=== PATIENT | female | born 1975 | race Caucasian/White ===

== ENCOUNTER 2017-01-25 07:58 | Observation (INO) | payer BC ==
[2017-01-25] MEDS ORDERED: Clindamycin 900 MG IVPREMIX(* 900 MG/50 ML SDV IV ONE (09:00)
[2017-01-25] MEDS ORDERED: HYDROmorphone PCA* 20 MG/20 ML PCA.SYRING ONE (09:35)
[2017-01-25] MEDS ORDERED: LORazepam TAB(*) 1 MG ONE (09:59)
[2017-01-25] MEDS ORDERED: Scopolamine 1.5 mg* PATCH ONE (09:59)
[2017-01-25] MEDS ORDERED: Ondansetron INJ* 2 MG/ML VIAL ONE (09:59)
[2017-01-25] MEDS ORDERED: Ibuprofen TAB* 800 MG PO ONE (10:00)
[2017-01-25] MEDS ORDERED: oxyCODONE SR TAB(*) 10 MG TAB.SR PO ONE (11:00)
[2017-01-25] MEDS ORDERED: Lidocaine 1% INJ* 10 MG/ML 30 ML SDV ONE (12:33)
[2017-01-25] MEDS ORDERED: Naloxone* 0.4 MG/ML 1 ML VIAL ONE (12:33)
[2017-01-25] MEDS ORDERED: Flumazenil* 0.1 MG/ML 5 ML MDV ONE (12:33)
[2017-01-25] MEDS ORDERED: Ketorolac INJ* 30 MG/ML 1 ML VIAL ONE ×2 (12:33→14:02)
[2017-01-25] MEDS ORDERED: Iohexol 350 (CONTRAST) 200 ML MDV IV ONE ×2 (12:33→14:06)
[2017-01-25] MEDS ORDERED: Midazolam* 1 MG/ML 10 ML VIAL (10 MG) ONE (12:33)
[2017-01-25] MEDS ORDERED: fentaNYL* 50 MCG/ML 5 ML VIAL (250 MCG VIAL) ONE ×2 (12:33→14:11)
[2017-01-25] MEDS ORDERED: Heparin 2 UNITS/ML IVPREMIX* 1,000 ML IV ONE ×2 (12:33→12:37)
[2017-01-25] MEDS ORDERED: nitroGLYCERIN DRIP* 25,000 MCG/250 ML BTL ONE (13:03)
[2017-01-25] MEDS ORDERED: HYDROmorphone INJ* 1 MG/ML CARPUJECT SYRINGE ONE (14:30)
[2017-01-25] MEDS: NS 0.9% 1000 ML* 1,000 ML IV SCH ×2 (15:21→21:03)
[2017-01-25] MEDS: Ketorolac INJ* 15 MG/ML 1 ML VIAL IV PUSH SCH ×2 (15:41→19:54)
[2017-01-25] MEDS ORDERED: HYDROmorphone PCA* 20 MG/20 ML PCA.SYRING PCA SCH (16:00)
[2017-01-25] MEDS ORDERED: Ketorolac INJ* 15 MG/ML 1 ML VIAL IV PUSH ONE (16:00)
--- NOTE | 2017-01-25 17:39 | PN ---
Progress Note - Progress Note Date of Service: 01/25/17 SOAP: Subjective: Pain currently controlled with Dilaudid REPLANTER. Denies nausea. Patient taking small sips of clears. Objective: Selected Entries 01/25/17 01/25/17 17:17 17:19 Temperature 97.2 F Temperature Oral Source Pulse Rate 66 Respiratory 16 Rate Blood Pressure 104/52 (mmHg) Blood Pressure 65 Mean O2 Sat by Pulse 96 Oximetry Sleepy, but arousable to voice. NAD, AAO x 3 Abdomen & Pelvis are soft Suprapubic area and uterine fundus tender to palpation Right CF arteriotomy site is soft, non-tender, non-ecchymotic Dressing is CDI 2+ pulses in RLE Right leg and foot NM grossly intact Assessment: 41 YOF status post Uterine Fibroid Embolization with expected post embolization pain & nausea currently well controlled. Plan: 1. Standard Interventional Radiology post UFE pain and nausea control with standard monitoring. 2. Transition to PO pharmacotherapy tomorrow morning. 3. Add Ativan 0.5 mg PO Q 6 hours PRN for pain/nausea/anxiety. 4. Bedrest ends and Arana removed at 2000 hours.
[2017-01-25] MEDS ORDERED: LORazepam TAB(*) 0.5 MG PO PRN (17:41)
--- NOTE | 2017-01-25 19:02 | RAD ---
CPT II Codes: 6045F Procedure(s) performed: * Pelvic arteriography including the bilateral internal iliac arteries. * Catheter arteriography of the bilateral uterine arteries. * Catheter embolization of the bilateral uterine arteries. Date of service: January 25, 2017 Indication for procedure: Severe menstrual pain in the presence of multiple uterine fibroids. Comparison: MRI of pelvis dated January 16, 2017 and ultrasound of the pelvis dated October 11, 2016. Contrast: 75 mL Omnipaque 300 Fluoroscopy Time: 24 minutes Vessels Accessed: Percutaneous access was obtained with ultrasound guidance in the right common femoral artery in the retrograde. Catheter arteriography, with the catheter tip located within the lumen of the following arteries, was performed at the Bilateral Internal Iliac Arteries and Bilateral Uterine Arteries. Anesthesia: Conscious sedation with IV Fentanyl and Versed as well as local 1% lidocaine injected locally at the arteriotomy site. Conscious sedation time: Timeout: 1250 hours Case end: 1426 hours Total conscious sedation time: 1 hour and 36 minutes Additional medications: * 300 mcg IA nitroglycerin injected intermittently throughout the course of the procedure to alleviate arterial spasm. * Intra-arterial Toradol, 15 mg injected into each uterine artery, for a total of 30 mg intra-arterial. * Intravenous Toradol, 20 mg. * Transdermal scopolamine patch 1.5 mg applied to the mastoid process prior to the procedure beginning. * A total of 4 mg Zofran was administered intravenously. * Additional preoperative medications included Ativan 1 mg p.o., ibuprofen 800 mg p.o. and clindamycin 900 mg IV. PROCEDURE NOTE AND INTRAPROCEDURAL IMAGING FINDINGS: Immediately prior to the procedure the patient signed consent after thoroughly discussing all risks and benefits. The patient was positioned on the fluoroscopy table in the supine position and the bilateral groins were shaved, prepped and draped in standard sterile fashion. Using fluoroscopic imaging the location of the right common femoral head was marked externally with a skin marker on the patient's groin. Utilizing sonographic guidance and palpation the right common femoral artery was cannulated overlying the right femoral head with a 18-gauge needle. An ultrasound image was saved. A 0.035 inch Bentson wire was slowly and smoothly advanced to the aortic bifurcation under fluoroscopic imaging. No buckling of the wire was visualized to indicate dissection. Over the wire a 5-Gambian SideArm sheath was advanced into the artery, the inner stiffener was removed and right arterial blood was readily acquired from the side arm before the sheath was flushed with sterile saline. Utilizing a 5-Gambian C2 catheter the left common iliac artery was accessed and the [place] wire was advanced into the internal iliac artery. Over the wire the 5-Gambian catheter was advanced into the internal iliac artery. Contrast arteriography with the tip of the catheter in the left internal iliac artery was necessary to discern the origin of the left uterine artery. Once the uterine artery was identified, a Renegade High-flow microcatheter and microwire were advanced into the parent catheter and, in conjunction with contrast angiography, the uterine artery was identified and selected with the micro catheter. Prior to embolization, contrast injection into the horizontal portion of the uterine artery demonstrated no large, obvious collateral blood flow to the ovary or a definite cervicovaginal branch descending inferiorly. Intra-arterial nitroglycerin was injected intermittently to alleviate arterial spasm. Under fluoroscopic control 1 vial of 500 um Embozenes and 2 vials of 500-700 micron Embospheres were slowly injected into the uterine artery to near complete stasis. Towards the end of the left uterine artery embolization 15 mg of Toradol was injected intra-arterially. The microcatheter was pulled back into the more proximal descending portion of the uterine artery and contrast angiography depicted near complete stasis of the uterine artery. The microcatheter was removed and replaced with an 0.035" guidewire. The C2 catheter was removed and replaced with a Merit 5-Gambian [facility] Impress catheter which was then formed in the lower abdominal aorta and used to access the ipsilateral right internal iliac artery. Contrast angiography with the tip of the 5-Gambian catheter in the proximal most portion of the right internal iliac artery demarcated the right uterine artery and multiple oblique projections were obtained to best depict the origin of the uterine artery. Once the uterine artery was identified, the Renegade High-flow microcatheter and microwire were advanced into the parent catheter and, in conjunction with contrast angiography, the uterine artery was identified and selected with the micro catheter. Prior to embolization, contrast injection into the horizontal portion of the uterine artery demonstrated no large, obvious collateral blood flow to the ovary or a definite cervicovaginal branch descending inferiorly. Intra-arterial nitroglycerin was injected intermittently to alleviate arterial spasm. Under fluoroscopic control 1 vial of 500 um Embozenes and one vial of 500-700 micron Embospheres were slowly injected into the uterine artery to near complete stasis. Towards the end of the right uterine artery embolization 15 mg of Toradol was injected intra-arterially. The microcatheter was pulled back into the more proximal descending portion of the uterine artery and contrast angiography depicted near complete stasis of the uterine artery. The microcatheter and wire were removed and the 0.035" wire was readvanced to the tip of the catheter. The system was then advanced towards the aorta. The contralateral left common iliac artery was accessed and the catheter and wire were removed under fluoroscopic control. The access sheath was removed and pressure was held at the common femoral arteriotomy for approximately 15 minutes. There were no signs of bleeding at the right groin access site and the site was dressed with sterile gauze and Tegaderm. The patient tolerated the procedure well and was transferred to the short stay recovery unit in stable condition for routine overnight observation and pain and nausea control. SUMMARY OF PROCEDURE, IMAGING FINDINGS AND INTERVENTIONS PERFORMED: 1. Diagnostic studies performed: * Arterial access was obtained at the right common femoral artery in the retrograde direction (i.e. towards the heart) with ultrasound guidance. A sonographic image was recorded. * Diagnostic catheter angiography (necessary to perform the appropriate interventions) was performed with the catheter tip in the bilateral internal iliac arteries and bilateral uterine arteries. * Catheter arteriography was performed of the bilateral internal iliac arterial system and specifically the bilateral uterine arteries. 2. Interpretation of diagnostic studies performed: * Large uterine arteries are identified bilaterally providing blood flow to the patient's multiple large fibroids. 3. Surgical interventions performed: * Near stasis embolization of the bilateral uterine arteries utilizing 2 vials 500 um Embozenes and 3 vials 500-700 micron Embospheres. 4. Interpretation of interventions performed: * Final arteriography demonstrated near complete stasis of the bilateral uterine arteries as well as contrast "staining" of the uterine fibroid. PLAN: 1. The patient will be admitted to short stay surgical unit for routine overnight observation including pain and nausea control. 2. Outpatient clinical and imaging follow-up according to the Interventional Radiology protocol.
[2017-01-25] MEDS: Ondansetron INJ* 2 MG/ML VIAL IV SCH (19:53)
--- NOTE | 2017-01-26 01:26 | HP ---
AMENDED REPORT NOW INCLUDES COSIGNER DESIGNATION- ESIGNED BEFORE ADJUSTMENTS CC: TAYLER Morrissey * HOSPITAL MEDICINE HISTORY AND PHYSICAL: DATE OF ADMISSION: 01/25/17 PRIMARY CARE PROVIDER: TAYLER Morrissey. ATTENDING PHYSICIAN: Alvino Guzman MD * (dictation provided by Carole Person NP) CHIEF COMPLAINT: Status post uterine fibroid embolization. HISTORY OF PRESENT ILLNESS: Ms. Abad is a 41-year-old female with a past medical history of uterine fibroids as well as PVC's who presents to the hospital today for planned uterine fibroid embolization with Dr. Parish. At the time of my examination, the patient is immediately status post procedure and is quite sedated though arousable. Information is, therfore, obtained from the electronic medical record. Per the report, the patient had some irregular menstrual cycles about 2-1/2 years ago, at which time she was diagnosed with uterine fibroids. Since that time, she has continued to have pelvic pain primarily associated with menstruation as well as some concern for urinary urgency and frequency. She has had consultation with Dr. Parish and opted for uterine fibroid embolization today. PAST MEDICAL HISTORY: 1. Uterine leiomyoma. 2. Frequent PVCs, started on atenolol by Dr. Coronel. MEDICATIONS: As outpatient are: 1. Atenolol 12.5 mg p.o. daily. 2. Glucosamine/chondroitin one capsule p.o. daily. 3. Magnesium 250 mg every other day. 4. Fluticasone nasal spray two sprays both nares daily. 5. Multivitamin one tablet p.o. daily. ALLERGIES: DOXYCYCLINE and PENICILLIN. FAMILY HISTORY: There is a questionable report of maternal grandmother who had cancer that was suspected to maybe be an endometrial cancer. Her maternal grandmother ultimately related to a CVA. Her maternal grandfather had kidney cancer. Her father has hypertension and depression. Mother has glaucoma and macular degeneration. SOCIAL HISTORY: The patient is . She lives with her . She is employed as a psychologist. She has never smoked. She drinks wine occasionally. No report of drug use. REVIEW OF SYSTEMS: Unobtainable today as the patient is quite sedated or arousable. PHYSICAL EXAMINATION GENERAL: Ms. Abad is lying in the bed. She is in no acute distress. VITAL SIGNS: Temperature 97.2, pulse rate 66, respiratory rate 16, O2 saturation 99% on room air, blood pressure 104/52. HEART: S1, S2. No murmur, rub, or gallop, and regular. LUNGS: Clear to auscultation bilaterally with no accessory muscle use and good aeration. ABDOMEN: Soft, nontender with bowel sounds positive. NEURO: She is sleepy, but she awakens easily to voice. She will respond appropriately but then drift off back to sleep. She moves all extremities equally. There is no facial asymmetry or focal weakness. Extraocular movements are intact. EXTREMITIES: No cyanosis or edema. SKIN: Intact. LABORATORY DATA: On 01/21/17, WBC 7.2, hemoglobin 14.1, hematocrit 42, and platelet count 278,000. Sodium 137, potassium 4.2, chloride 104, serum bicarbonate 28, BUN 14, creatinine 0.86, glucose 80. ASSESSMENT: Ms. Abad is a 41-year-old female with a recent diagnosis of uterine fibroids approximately 2.5 years ago who presents to the hospital today with concern for ongoing pelvic pain associated with menstruation as well as urinary urgency and frequency for a planned uterine fibroid embolization with Dr. Parish. PLAN: Plan will be to continue with Dr. Parish's orders for pain and anti-emetic medications p.r.n. She will also continue with IV fluids through the evening. Plan to also continue her atenolol for her history of premature ventricular contractions. I anticipate discharge to home tomorrow if she is able to tolerate oral intake and her pain and nausea are well controlled. TIME SPENT: Approximately 45 minutes were spent on the admission of this patient, more than half the time was spent with the patient at the bedside reviewing the events leading up to this hospitalization, performing the physical examination, and reviewing my plan of care. CAROLE PERSON NP [id number]/[facility] #: [id number] RYAN
[2017-01-26] MEDS: Ondansetron INJ* 2 MG/ML VIAL IV SCH ×2 (02:12→09:09)
[2017-01-26] MEDS: Ketorolac INJ* 15 MG/ML 1 ML VIAL IV PUSH SCH ×2 (02:18→09:09)
[2017-01-26] MEDS: NS 0.9% 1000 ML* 1,000 ML IV SCH ×2 (02:43→08:19)
[2017-01-26] MEDS ORDERED: Ondansetron TAB* 4 MG PO PRN (08:00)
[2017-01-26] MEDS ORDERED: Ketorolac TAB * 10 MG TAB PO PRN (08:00)
--- NOTE | 2017-01-26 08:56 | PN ---
Subjective Date of Service: 01/26/17 Interval History: Ms. Abad reports some mild discomfort in her lower abdomen which she states is manageable. She also reports nausea with vomiting x 2 last evenin. However, this morning she hasn't had much nausea. She has ambulated to the bathroom a couple of times and felt a bit lightheaded. She denies chest pain or SOB. Objective Active Medications: Atenolol (Tenormin Tab*) 12.5 mg PO DAILY CHRISTIANO Fluticasone Propionate (Flonase Nasal [place] 50mcg*) 2 spray BOTH NARES DAILY CHRISTIANO Sodium Chloride (Ns 0.9% 1000 Ml*) 1,000 mls @ 175 mls/hr IV PER RATE CHRISTIANO Hydromorphone HCl (Dilaudid Material Requisitioner*) 20 mg in 20 mls @ 0 mls/hr REGISTRAR ASSISTANT .change Q24H CHRISTIANO; Per Protocol Ketorolac Tromethamine (Toradol Tab *) 10 mg PO Q6H PRN Lorazepam (Ativan Tab(*)) 0.5 mg PO Q8H PRN Multivitamins ( Vitamin Tab*) 1 tab PO DAILY CHRISTIANO Ondansetron HCl (Zofran Tab*) 4 mg PO Q6H PRN Vital Signs: Temp Pulse Resp BP Pulse Ox 98.3 F 55 16 107/62 97 01/26/17 07:57 01/26/17 07:57 01/26/17 07:57 01/26/17 07:57 01/26/17 07:57 Oxygen Devices in Use Now: None Appearance: Female sitting up in bed in NAD Eyes: No Scleral Icterus Ears/Nose/Mouth/Throat: Mucous Membranes Moist Neck: Trachea Midline Respiratory: Symmetrical Chest Expansion and Respiratory Effort, Clear to Auscultation Cardiovascular: NL Sounds; No Murmurs; No JVD, No Edema Abdominal: - - Soft, mild tenderness, BS +, no distention Lymphatic: No Cervical Adenopathy Extremities: No Edema Skin: No Rash or Ulcers Neurological: Alert and Oriented x 3, NL Muscle Strength and Tone Nutrition: Taking PO's Assess/Plan/Problems-Billing Assessment: Ms. Abad is a 41 yo female with a PMH of uterine fibroids and PVCs who was admitted on 01/25/17 s/p uterine fibroid embolization. - Patient Problems (1) Uterine fibroid Comment: - S/p embolization with Dr. Parish. - Pain reasonably controlled, anticipate d/c of dilaudid REGISTRAR ASSISTANT this morning and switch to oral medication regimen. - Nausea reasonably controlled, continue anti-emetics. (2) PVC (premature ventricular contraction) Comment: - Continue atenolol. (3) DVT prophylaxis Comment: - Early mobility, low risk. (4) Full code status Comment: Status and Disposition: OBV. Anticipate discharge today.
[2017-01-26] MEDS ORDERED: Atenolol TAB* 25 MG PO SCH (09:00)
[2017-01-26] MEDS ORDERED: Prenatal Vitamin TAB PO SCH (09:00)
[2017-01-26] MEDS ORDERED: Fluticasone NASAL SPRAY 50MCG* 16 gm SPRAY BTL BOTH NARES SCH (09:00)
--- NOTE | 2017-01-26 09:21 | PN ---
Progress Note - Progress Note Date of Service: 01/26/17 SOAP: Subjective: Sitting up in bed talking with family. Pain and nausea well controlled. Patient has eaten, drank fluids and taken PO medications this morning. Patient has walked around the [facility] as well. Objective: Selected Entries 01/26/17 01/26/17 01/26/17 07:57 08:00 08:58 Temperature 98.3 F Pulse Rate 73 Respiratory 16 Rate Blood Pressure 107/62 (mmHg) Blood Pressure 72 Mean O2 Sat by Pulse 97 Oximetry NAD, AAOx3 Abd and pelvis is soft Minimal tenderness to palpation over suprapubic area Right groin is soft, nontender Dressing is CDI 2+ pulses palpated at right REGISTERED DIETETIC TECHNICIAN, pop and DPA RLE NM grossly intact Assessment: 41 YOF POD #1 status post Uterine Fibroid Embolization with pain and nausea well controlled. Plan: 1. Anticipate D/C to home today. 2. Discharge medication regimen will include: * Toradol 10 mg PO Q 6 hours x 3 days, dispense #15 in case addition pain control necessary, refill x 1. * AFTER TORADOL: Ibuprofen 600 mg PO Q 6 hours x 3 days, titrate dose down as necessary * Scopolamine patch, 1.5 mg transdermal. On 01/28/17 at 9:00am, remove current patch and replace with new then wear x 3 days. Dispense #2 patches. * Zofran 4 mg PO Q 6 hours x 5 days, dispense #30 with 1 refill. * Percocet 5/325, take 1 or 2 tablets as needed for breakthrough pain Q 6 hours x 5 days, dispense #30. No refills. 3. In addition to pharmacotherapy, please drink daily one cup of Smooth Move laxative tea or another laxative tea of your choice. 4. Standard Interventional Radiology follow up will include RN call Saturday, and Saturday, 02/04/17 followed by clinic appointment in ~6 weeks. 5. Patient and her have my contact information including my cell phone number in case of post embolization issues.
[2017-01-26 12:24] VITALS: BP 107/67
--- NOTE | 2017-01-27 10:32 | DS ---
CC: TAYLER Morrissey. * DISCHARGE SUMMARY: DATE OF ADMISSION: 01/25/17 DATE OF DISCHARGE: 01/26/17 PRIMARY CARE PROVIDER: TAYLER Morrissey. ATTENDING PHYSICIAN: Dr. Kalin Garland * (dictation provided by Jaron Person NP). PRIMARY DIAGNOSIS: Status post uterine fibroid embolization. SECONDARY DIAGNOSES: 1. History of uterine leiomyoma. 2. Frequent premature ventricular contractions, started on atenolol by Dr. Coronel. MEDICATIONS: At the time of discharge are: 1. Magnesium 250 mg p.o. every other day. 2. Multivitamin/mineral 1 tablet p.o. daily. 3. Glucosamine/chondroitin 500/400 one capsule p.o. daily. 4. Fluticasone nasal spray 2 sprays to both nares daily. 5. Atenolol 12.5 mg p.o. daily. 6. Hydrocodone/acetaminophen 5/325 one to two tablets p.o. q.6 hours p.r.n. 7. Scopolamine patch 1 patch q.72 hours. 8. Ondansetron 4 mg p.o. q.6 hours p.r.n. nausea. 9. Ketorolac 10 mg p.o. q.6 hours x3 days for pain. 10. Ibuprofen 600 mg p.o. q.6 hours for pain after completion of Toradol. HOSPITAL COURSE: Ms. Abad is a 41-year-old female with a past medical history of uterine leiomyoma, who presented to the hospital on 01/25/17 for planned uterine fibroid embolization with Dr. Parish. Please see his consultation for complete details. In brief, the patient had ongoing pelvic pain associated with menstruation as well as urinary urgency and frequency. The patient underwent uterine fibroid embolization on 01/25/17. Ms. Abad is doing well today. Her nausea and pain are well-controlled on the current regimen. Plans are for her to be discharged home to follow up with Dr. Parish. She will be called by the RN from his office on Saturday on 01/28/17 and have a followup appointment in 6 weeks. DISPOSITION: To home. DIET: Regular. ACTIVITY: As tolerated. FOLLOWUP PLANS: Please follow up Dr. Parish's office. The patient will be called on Saturday and then follow up in 6 weeks. TIME SPENT: Approximately 60 minutes were spent on the discharge of this patient, more than half the time was spent with the patient at the bedside reviewing the events leading up to this hospitalization, performing the physical examination, and reviewing my plan of care. CAROL PERSON NP [id number]/[facility] #: [id number] RYAN
== END 2017-01-26 12:55 | disposition home or self-care (01) ==
LOC: CHICATH 07:58 → SSU 15:40
PROVIDERS: ADMIT Hospitalist; ATTEND Radiology Diagnostic Radiology
DX: D25.9 Leiomyoma of uterus, unspecified (principal); I49.3 Ventricular premature depolarization
CPT/HCPCS: 37243; 99156; 99157; A9270-GY; C1884; C1887; G0378; J1170; J1644; J1885; J2001; J2250; J2310; J2405; J3010

== ENCOUNTER 2017-03-01 21:30 | Emergency (ER) | payer BC ==
[2017-03-01 21:44] VITALS: BP 118/72
[2017-03-01] MEDS ORDERED: Lidocaine 2% PF * 5 ML VIAL INJ ONE (21:47)
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
== END 2017-03-01 22:20 | disposition home or self-care (01) ==
LOC: UCEAST 21:30
DX: S01.511A Laceration without foreign body of lip, initial encounter (principal); W22.8XXA Striking against or struck by other objects, initial encounter; Y93.89 Activity, other specified; Y92.9 Unspecified place or not applicable; Z88.0 Allergy status to penicillin
CPT/HCPCS: 12001; 12011; 12014; 99211; G0463